=== PATIENT | male | born 1990 | race Caucasian/White ===

== ENCOUNTER 2018-02-14 12:29 | Emergency (ER) | payer OTHER ==
[~2018-02-14] VITALS: Ht 170.2 cm; Wt 77.1 kg
[2018-02-14 12:37] VITALS: BP 136/98
[2018-02-14] MEDS: NACL 0.9% 1,000 ML IV ONE (13:05)
[2018-02-14 13:09] LABS: BASOPHILS % (AUTO) 0.5 % (0.0-2.0); EOSINOPHILS # (AUTO) 0.1 K/uL (0-0.4); EOSINOPHILS % (AUTO) 0.9 % (0.0-4.0); HEMATOCRIT 51.2 % (36-52); HEMOGLOBIN 17.4 g/dL (12.0-18.0); LYMPHOCYTES # (AUTO) 2.7 K/uL (2.0-11.5); LYMPHOCYTES % (AUTO) 27.2 % (20.5-51.1); MEAN CORPUSCULAR HEMOGLOBIN 28 pg (27-31); MEAN CORPUSCULAR HGB CONC 34 g/dL (33-37); MEAN CORPUSCULAR VOLUME 83.5 fL (80-94); MONOCYTES # (AUTO) 0.8 K/uL (0.8-1.0); MONOCYTES % (AUTO) 8.1 % (1.7-9.3); NEUTROPHILS # (AUTO) 6.3 K/uL (1.8-7.7); NEUTROPHILS % (AUTO) 63.3 % (42.2-75.2); PLATELET COUNT (AUTO) 322 K/uL (140-450); RED BLOOD CELL COUNT(AUTO) 6.14 MIL/uL (4.20-6.10); RED CELL DISTRIBUTION WIDTH 13.3 % (11.6-13.7); WHITE BLOOD COUNT (AUTO) 9.9 K/uL (4.8-10.8)
[2018-02-14 15:57] LABS: ANION GAP 15.7 (8-16); CARBON DIOXIDE 28.9 mmol/L (21-32); POTASSIUM 4.6 mmol/L (3.5-5.1)
[2018-02-14 16:03] LABS: TOTAL BILIRUBIN 0.6 mg/dL (0.0-1.0)
[2018-02-14 16:49] VITALS: BP 136/98
== END 2018-02-14 16:48 | disposition home or self-care (01) ==
LOC: MED 12:29
DX: E11.65 Type 2 diabetes mellitus with hyperglycemia (principal)
CPT/HCPCS: 36415; 80053; 82948; 85025; 96360; 99283; J7030

== ENCOUNTER 2019-07-08 22:31 | Emergency (ER) | payer SELFPAY ==
[~2019-07-08] VITALS: Ht 185.4 cm; Wt 85.3 kg
[2019-07-08 22:31] VITALS: BP 131/96
--- NOTE | 2019-07-08 22:31 | NUR ---
PT TAKEN TO BED 9
--- NOTE | 2019-07-08 22:43 | NUR ---
28 Y/O MALE PRESENTS WITH PALPITATIONS STARTING TODAY. PT DENIES CHEST PAIN/SOB. PT STATES HE WAS WATCHING THE NEWS AND TALKING TO HIS MOM AND FEELS HE MAY BE EXPERIENCING ANXIETY. PT ALSO C/O OF SIDE PAIN THAT COMES AND GOES, RATING IT 4/10 SHARP PAIN. DENIES ANY FEVERS,CHILLS, NAUSEA, VOMITING. DENIES ANY COUGH/SOB. PT ALSO REPORTS HE DRANK 2 LITERS OF SODA TODAY. HX: SASHA ANDERSON
--- NOTE | 2019-07-08 22:52 | NUR ---
Dr. Garcia examining patient.
--- NOTE | 2019-07-08 23:03 | NUR ---
X-Ray at bedside.
--- NOTE | 2019-07-08 23:10 | NUR ---
EKG PERFORMED AT BEDSIDE
--- NOTE | 2019-07-08 23:30 | NUR ---
URINE COLLECTED VIA URINAL AND SENT TO LAB
--- NOTE | 2019-07-08 23:45 | NUR ---
PT RESTING COMFORTABLY ON BED. NO ANXIETY ATTACK COMPLAIN. PT IS CALM AND VSS.
[2019-07-08 23:57] LABS: BARBITURATE, URINE NEGATIVE ng/ml (NEG <=200); BENZODIAZEPINE, URINE NEGATIVE ng/mL (NEG <=200); CANNABINOID, URINE NEGATIVE ng/mL (NEG <=50); COCAINE, URINE NEGATIVE ng/mL (NEG <=300); OPIATE, URINE NEGATIVE ng/mL (NEG <=2000); PHENCYCLIDINE SCREEN,URINE NEGATIVE ng/mL (NEG <=25)
[2019-07-09 00:08] VITALS: BP 127/81
--- NOTE | 2019-07-09 00:10 | NUR ---
Patient discharged with v/s stable. Written and verbal after care instructions given and explained. Patient alert, oriented and verbalized understanding of instructions. Ambulatory with steady gait. All questions addressed prior to discharge. ID band removed. Patient advised to follow up with PMD. Rx Benadryl given. Patient educated on indication of medication including possible reaction and side effects. Opportunity to ask questions provided and answered. Pt is aaox4, walk in steady gait. No c/o any CP, SOB or any pain on [email or web address].t d/c.
== END 2019-07-09 00:10 | disposition home or self-care (01) ==
LOC: MED 22:31
DX: R07.9 Chest pain, unspecified (principal); E11.9 Type 2 diabetes mellitus without complications
CPT/HCPCS: 71045; 80305; 93005; 99284

== ENCOUNTER 2021-09-28 21:48 | Emergency (ER) | payer SELFPAY ==
[~2021-09-28] VITALS: Ht 180.3 cm; Wt 86.2 kg
[2021-09-28 21:59] VITALS: BP 156/101
--- NOTE | 2021-09-29 01:35 | NUR ---
PT TAKEN TO CHAIR
--- NOTE | 2021-09-29 01:36 | NUR ---
Dr. Garcia examining patient.
[2021-09-29] MEDS ORDERED: NAPR-54 PO (01:43)
[2021-09-29] MEDS ORDERED: CEPH-588 PO (01:43)
[2021-09-29 01:52] VITALS: BP 146/96
--- NOTE | 2021-09-29 01:52 | NUR ---
Patient discharged with v/s stable. Written and verbal after care instructions given and explained. Patient alert, oriented and verbalized understanding of instructions. Ambulatory with steady gait. All questions addressed prior to discharge. ID band removed. Patient advised to follow up with PMD. Rx of Keflex and Naproxen given. Patient educated on indication of medication including possible reaction and side effects. Opportunity to ask questions provided and answered.
== END 2021-09-29 01:52 | disposition home or self-care (01) ==
LOC: MED 21:48
DX: L03.012 Cellulitis of left finger (principal); E11.9 Type 2 diabetes mellitus without complications; Z79.899 Other long term (current) drug therapy; Z90.49 Acquired absence of other specified parts of digestive tract
CPT/HCPCS: 99283